=== PATIENT | female | born 1980 | race Caucasian/White ===

== ENCOUNTER 2020-01-07 13:21 | Emergency (ER) | payer BC ==
[~2020-01-07] VITALS: Ht 157.5 cm; Wt 103.0 kg
--- NOTE | 2020-01-07 13:45 | NUR ---
pt to er bed 09 c/o throat tightness and lower lip swelling that started this morning. no apparent distress noted on monitor. awaiting md mcfadden.
--- NOTE | 2020-01-07 13:54 | NUR ---
dr glover at bedside for eval.
[2020-01-07] MEDS ORDERED: diphenhydrAMINE HCL 50 MG/ML VIAL IV ONE (14:00)
[2020-01-07] MEDS ORDERED: EPINEPHRINE (1:1000) MDV 30 MG/30ML VIAL IM ONE (14:00)
[2020-01-07] MEDS ORDERED: methylPREDNISolone SOD SUCC 125 MG/2ML VIAL IV ONE (14:00)
[2020-01-07] MEDS ORDERED: IV NS 0.9% 1,000 ML IV ONE (14:00)
[2020-01-07] MEDS ORDERED: FAMOTIDINE/PF INJ 20 MG/2 ML VIAL IV ONE ×2 (14:00→14:05)
[2020-01-07] MEDS ORDERED: EPINEPHRINE (1:1000) 1 MG/ML AMPUL ONE (14:04)
[2020-01-07] MEDS ORDERED: diphenhydrAMINE HCL 50 MG/ML VIAL ONE (14:04)
[2020-01-07] MEDS ORDERED: methylPREDNISolone SOD SUCC 125 MG/2ML VIAL ONE (14:04)
--- NOTE | 2020-01-07 15:30 | NUR ---
pt comfortable, states throat does not feel tight and itchy. requested for water. dr glover made aware. pt provided w/ drinking water.
--- NOTE | 2020-01-07 16:25 | NUR ---
Patient discharged to home in stable condition. Written and verbal after care instructions given. Patient verbalizes understanding of instruction.IV removed. Catheter intact and site benign. Pressure and 4x4 applied to site. No bleeding noted.
[2020-01-07 16:26] VITALS: BP 136/60
== END 2020-01-07 16:27 | disposition home or self-care (01) ==
LOC: ER 13:26
DX: T78.3XXA Angioneurotic edema, initial encounter (principal); G43.909 Migraine, unspecified, not intractable, without status migrainosus; Z98.890 Other specified postprocedural states; Z88.0 Allergy status to penicillin
CPT/HCPCS: 96372; 96374; 96375; 99285; J0171 ×2; J1200; J2930; J3490; J7030